=== PATIENT | female | born 1945 | race African-American/Black ===

== ENCOUNTER 2018-03-20 11:42 | Emergency (ER) | payer MEDICARE ==
--- NOTE | 2018-03-20 14:20 | RAD ---
RIGHT HUMERUS 2 VIEWS: Date: 03/20/18 HISTORY: Pain. Fall. COMPARISON: None. FINDINGS: No fracture. No malalignment. Soft tissues are unremarkable. IMPRESSION: No acute abnormality. POS: [facility]
--- NOTE | 2018-03-20 14:22 | RAD ---
RIGHT SHOULDER 3 VIEWS: Date: 03/20/18 HISTORY: Pain. COMPARISON: None. FINDINGS: There is right distal clavicular osteolysis. No acute fracture or malalignment. Soft tissues are unre markable. 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 POS: [facility]
== END 2018-03-20 14:56 | disposition home or self-care (01) ==
LOC: ERS 11:42
DX: M75.91 Shoulder lesion, unspecified, right shoulder (principal); M19.011 Primary osteoarthritis, right shoulder; E78.5 Hyperlipidemia, unspecified; I10 Essential (primary) hypertension; Z79.899 Other long term (current) drug therapy

== ENCOUNTER 2018-06-30 15:55 | Outpatient (CLI) | payer MEDICARE ==
--- NOTE | 2018-06-30 17:12 | MRI ---
EXAM: Right shoulder MRI without contrast: HISTORY: Right shoulder pain for 6 months, tear of right rotator cuff COMPARISON: None FINDINGS: Multiplanar, multisequence MRI examination of the shoulder is performed. A C joint:AC joint arthrosis with fluid in the subacromial and subdeltoid bursa as well as downslopin g of the lateral and anterior acromion. Supraspinatus tendon: High-grade partial-thickness undersurface tear without significant retraction. There is also some interstitial tearing. Infraspinatus tendon: Intact Biceps tendon: Intact. Subscapularis tendon: Undersurface increased signal evidence for focal tendinopathy with probable low -grade partial-thickness undersurface tear. Rotator cuff muscles: Mild generalized rotator cuff muscle volume loss. Glenoid labrum: Abnormal signal in the superior labrum evidence for a SLAP tear with some superior po sterior para labral cysts including some intraosseous cystic component within the superior posterior glenoid. Greater tuberosity subchondral cysts. Minimal arthrosis and degenerative changes of the glenohumeral joint. IMPRESSION: High-grade irregular partial-thickness undersurface and laminated tear of the supraspinatus tendon. F luid within the subacromial subdeltoid bursa with prominent downsloping of the anterior and lateral acromion. Evidence for SLAP tear with some superior posterior para labral cysts including some intrao sseous cystic change of the glenoid. Mild generalized rotator cuff muscle volume loss.
== END 2018-06-30 15:56 | disposition home or self-care (01) ==
LOC: MRI 15:55
PROVIDERS: ATTEND Orthopaedic Surgery
DX: M75.101 Unspecified rotator cuff tear or rupture of right shoulder, not specified as traumatic (principal); S43.431A Superior glenoid labrum lesion of right shoulder, initial encounter; M85.611 Other cyst of bone, right shoulder

== ENCOUNTER 2020-11-02 08:59 | Emergency (ER) | payer MEDICARE ==
[2020-11-02 09:29] LABS: Bacteria/HPF None Seen HPF (None Seen); Bilirubin Negative (Negative); Blood, Urine Negative (Negative); Clarity Clear (Clear); Glucose, Urine (Dipstick) Normal (Negative); Ketone, Urine Negative (Negative); Leukocyte 500 Leu/uL (Negative); Nitrite Negative (Negative); Protein, Urine (Dipstick) 10 mg/dL (Neg-Trace); Specific Gravity, Urine 1.018 (1.002-1.036); Urobilinogen Normal mg/dL (Less than 2); WBC/HPF Greater than 50 HPF (0-3); pH, Urine 8.5 (5.0-9.0)
[2020-11-02 09:30] LABS: #Eosinphils 0.1 thou/uL (0.0-0.7); #Lymphocytes 1.4 thou/uL (1.20-3.40); #Monocytes 0.3 thou/uL (0.11-0.59); #Neutrophils 1.8 thou/uL (1.40-6.50); %Basophils 0.4 % (0.0-1.0); %Eosinophils 2.3 % (0.0-10.0); %Lymphocytes 38.6 % (21.0-51.0); %Neutrophils 49.7 % (42.0-75.0); Hemoglobin 11.7 g/dL (12.0-16.0); Mean Corpuscular HGB CONC 33.4 g/dL (32.0-36.0); Mean Corpuscular Hemoglobin 30.1 pg (27.0-31.0); Mean Corpuscular Volume 89.9 fL (78.0-98.0); Mean Platelet Volume 8.7 fL (7.4-10.4); Platelet Count 215 thou/uL (130-400); RBC Distribution Width 12.3 % (11.5-14.5); White Blood Cell (WBC) Count 3.7 thou/uL (4.8-10.8)
[2020-11-02 09:57] LABS: ALT (SGPT) 17 U/L (8-55); AST (SGOT) 21 U/L (5-34); Alkaline Phosphatase 114 U/L (40-110); Anion Gap 14 mmol/L (10-20); BUN (Urea Nitrogen) 14 mg/dL (9.8-20.1); Bilirubin, Total 0.3 mg/dL (0.2-1.2); Calc. Creatinine Clearance 0 mL/min (70-130); Calcium 9.9 mg/dL (7.8-10.44); Carbon Dioxide 22 mmol/L (23-31); Chloride 106 mmol/L (98-107); Globulin 3.5 g/dL (2.4-3.5); Glucose 103 mg/dL (83-110); Lipase 12 U/L (8-78); Potassium 3.7 mmol/L (3.5-5.1); Protein, Total 7.5 g/dL (5.8-8.1); Sodium 138 mmol/L (136-145)
[2020-11-02] MEDS ORDERED: Iopamidol-370 76% 500 ML 1 ML ONE (10:17)
== END 2020-11-02 12:55 | disposition home or self-care (01) ==
LOC: ERS 08:59
DX: K63.89 Other specified diseases of intestine (principal); R10.84 Generalized abdominal pain; D72.819 Decreased white blood cell count, unspecified; R91.1 Solitary pulmonary nodule; N39.0 Urinary tract infection, site not specified; E78.00 Pure hypercholesterolemia, unspecified; E78.5 Hyperlipidemia, unspecified; M19.90 Unspecified osteoarthritis, unspecified site; Z79.899 Other long term (current) drug therapy
CPT/HCPCS: 36415; 74177; 80053; 81003; 81015; 83690; 84484; 85025; 93005; Q9967

== ENCOUNTER 2021-01-10 14:04 | Outpatient (CLI) | payer MEDICARE ==
[2021-01-11 01:42] LABS: SARS-CoV-2 PCR by NAA Not Detected (NotDetected)
== END 2021-01-10 14:05 | disposition home or self-care (01) ==
LOC: LABBT 14:04
PROVIDERS: ATTEND Internal Medicine Gastroenterology
DX: Z01.812 Encounter for preprocedural laboratory examination (principal); Z20.822 Contact with and (suspected) exposure to COVID-19
CPT/HCPCS: U0003; U0005

== ENCOUNTER 2021-01-14 10:50 | Outpatient (CLI) | payer MEDICARE | END 2021-01-14 10:51 | disposition home or self-care (01) | LOC: RAD 10:50 | PROVIDERS: ATTEND Internal Medicine Gastroenterology | DX: K21.9 Gastro-esophageal reflux disease without esophagitis (principal); K44.9 Diaphragmatic hernia without obstruction or gangrene | CPT/HCPCS: 74246 ==

== ENCOUNTER 2021-11-01 09:51 | Outpatient (CLI) | payer MEDICARE ==
[~2021-11-01 09:51] MED LIST: Iopamidol-370 76% 500 ML 1 ML ONE
== END 2021-11-01 09:52 | disposition home or self-care (01) ==
LOC: BICCT 09:51
PROVIDERS: ATTEND Physician Assistant Medical
DX: R10.9 Unspecified abdominal pain (principal); D64.9 Anemia, unspecified; R19.8 Other specified symptoms and signs involving the digestive system and abdomen; R93.5 Abnormal findings on diagnostic imaging of other abdominal regions, including retroperitoneum
CPT/HCPCS: 74177; 82565

== ENCOUNTER 2023-01-29 06:47 | Day surgery (SDC) | payer MEDICARE ==
[2023-01-27 13:36] VITALS: BMI 26.1
[2023-01-29] MEDS ORDERED: Sodium Chloride 0.9% 100 ML ONE (07:56)
[2023-01-29] MEDS ORDERED: CEFAZOLIN 2 GM VIAL ONE (07:56)
[2023-01-29] MEDS ORDERED: EPINEPHrine 1 MG/ML VIAL ONE (09:06)
[2023-01-29] MEDS ORDERED: Indocyanine Green 25 MG/10 ML VIAL ONE (09:06)
[2023-01-29] MEDS ORDERED: Bupivacaine 0.25% HCL 30 ML VIAL ONE (09:06)
[2023-01-29] MEDS ORDERED: fentaNYL PF 100 MCG/2 ML SYRINGE ONE (09:42)
[2023-01-29] MEDS ORDERED: Rocuronium Bromide 10 MG/ML (10ML VIAL) ONE ×2 (09:43→10:11)
[2023-01-29] MEDS ORDERED: Lidocaine 1% PF 5 ML VIAL ONE ×2 (09:43→10:11)
[2023-01-29] MEDS ORDERED: PROPOFOL 20 ML ONE (09:43)
[2023-01-29] MEDS ORDERED: ePHEDrine Sulfate 50 MG/10 ML VIAL ONE ×2 (10:11→10:24)
[2023-01-29] MEDS ORDERED: Ondansetron PF 4 MG/2 ML Vial ONE ×2 (10:11→10:44)
[2023-01-29] MEDS ORDERED: Dexamethasone 20 MG/5 ML VIAL ONE (10:11)
[2023-01-29] MEDS ORDERED: PROPOFOL 200 MG/20 ML VIAL ONE (10:11)
[2023-01-29] MEDS ORDERED: Glycopyrrolate 0.2 MG/ML 5 ML SYRINGE ONE (10:11)
[2023-01-29] MEDS ORDERED: SUGAMMADEX SODIUM 200 MG/2 ML VIAL ONE (10:45)
[2023-01-29] MEDS ORDERED: fentaNYL 50 mcg/mL 1 mL Vial ONE ×2 (11:18→12:10)
[2023-01-29] MEDS ORDERED: HYDROcodone/Acetaminophen 5/325 mg Tablet ONE (13:34)
== END 2023-01-29 13:50 | disposition home or self-care (01) ==
LOC: SDC 06:47
PROVIDERS: ATTEND Surgery
PROC: 0FT44ZZ Resection of Gallbladder, Percutaneous Endoscopic Approach (ICD-10-PCS; principal; 2023-01-29)
DX: K80.10 Calculus of gallbladder with chronic cholecystitis without obstruction (principal); K31.A0 Gastric intestinal metaplasia, unspecified; I10 Essential (primary) hypertension; E78.5 Hyperlipidemia, unspecified; Z87.891 Personal history of nicotine dependence; Z79.899 Other long term (current) drug therapy
CPT/HCPCS: 47562; 93005; J0171; J3010; 88304; 93010; J1100; J2405; J2704; J3490; S0020